=== PATIENT | male | born 1995 | race Caucasian/White ===

== ENCOUNTER 2019-09-07 08:12 | Inpatient (IN) | payer BC, OTHER ==
[~2019-09-07] VITALS: Ht 180.3 cm; Wt 89.9 kg
[2019-09-07] MEDS ORDERED: OMEP40CA97 PO (08:25)
[2019-09-07] MEDS ORDERED: NS 1,000 ML IV ONE (08:45)
[2019-09-07] MEDS ORDERED: PANTOPRAZOLE 40MG VIAL (C9113 PER 1) IV ONE (08:45)
[2019-09-07 09:44] LABS: BASO # 0.1 10^3/uL (0.0-0.2); BASO % 1.1 % (0.0-1.0); EOS # 0.7 10^3/uL (0.0-0.5); EOS % 14.6 % (0.0-3.0); HEMATOCRIT 41.7 % (42.0-52.0); HEMOGLOBIN 14.2 g/dl (13.5-17.5); LYMPH # 1.7 10^3/uL (1.5-5.0); LYMPH % 38.8 % (24.0-44.0); MEAN CORPUSCULAR HEMOGLOBIN 29.6 pg (27.0-33.0); MEAN CORPUSCULAR HGB CONC 34.1 g/dl (32.0-36.5); MEAN CORPUSCULAR VOLUME 86.9 fl (80.0-96.0); MONO # 0.5 10^3/uL (0.0-0.8); MONO % 12.1 % (0.0-5.0); NEUTROPHILS # 1.5 10^3/uL (1.5-8.5); NEUTROPHILS % 33.4 % (36.0-66.0); PLATELET COUNT, AUTOMATED 238 10^3/uL (150-450); WHITE BLOOD COUNT 4.5 10^3/uL (4.0-10.0)
--- NOTE | 2019-09-07 09:58 | REP ---
ABDOMINAL SERIES: Supine and erect views of the abdomen demonstrate no free air. There are scattered air throughout the GI tract. There is mild fecal material in the rectosigmoid colon. There are a few mildly dilated small bowel loops in the left mid abdomen. Two air fluid levels are seen on the upright view. No abnormal calcifications are seen. An accompanying view of the chest demonstrates no acute infiltrate. IMPRESSION: There are a few mildly dilated small bowel loops in the left mid abdomen with air fluid levels on the upright view. This could represent a mild focal ileus versus partial obstruction. Electronically Signed by Mitchell Duran MD 09/07/2019 07:35 P
[2019-09-07 10:03] LABS: INR 1.18; PROTHROMBIN TIME 14.7 SECONDS (11.8-14.0)
[2019-09-07 10:04] LABS: PARTIAL THROMBOPLASTIN TIME 26.5 SECONDS (25.0-38.4)
[2019-09-07 10:35] LABS: ALT/SGPT 48 U/L (12-78); AMYLASE 58 U/L (25-115); BILIRUBIN,DIRECT < 0.1 MG/DL (0.0-0.2); BILIRUBIN,TOTAL 0.4 MG/DL (0.2-1.0); BLOOD UREA NITROGEN 12 MG/DL (7-18); CARBON DIOXIDE LEVEL 28 MEQ/L (21-32); CHLORIDE LEVEL 108 MEQ/L (98-107); CK-MB VALUE MASS 3.4 NG/ML (<3.6); CPK CREATINE PHOSPHOKINASE 305 U/L (39-308); CREATININE FOR GFR 0.87 MG/DL (0.70-1.30); GLOMERULAR FILTRATION RATE > 60.0 (>60); GLUCOSE, FASTING 85 MG/DL (70-100); LIPASE 49 U/L (73-393); MB/CK RELATIVE INDEX 1.11 (< OR =4); SODIUM LEVEL 141 MEQ/L (136-145); TOTAL PROTEIN 7.5 GM/DL (6.4-8.2); TROPONIN I < 0.02 NG/ML (< 0.10)
[2019-09-07] MEDS ORDERED: ISOVUE-370 76% 100ML VIAL As Ordered ONE (12:37)
[2019-09-07] MEDS ORDERED: IBUP200C28 PO (13:34)
[2019-09-07 14:12] LABS: AMPHETAMINES LEVEL URINE NEGATIVE (NEGATIVE); BARBITURATES URINE NEGATIVE (NEGATIVE); BENZODIAZEPINES URINE NEGATIVE (NEGATIVE); CANNABINOIDS URINE POSITIVE (NEGATIVE); COCAINE METABOLITE URINE NEGATIVE (NEGATIVE); METHADONE URINE NEGATIVE (NEGATIVE); OPIATES URINE NEGATIVE (NEGATIVE); PHENCYCLIDINE URINE NEGATIVE (NEGATIVE)
--- NOTE | 2019-09-07 14:29 | REP ---
CT ABDOMEN AND PELVIS WITH IV CONTRAST: TECHNIQUE: Axial contrast-enhanced images from the lung bases to the pubic symphysis using 100 mL Isovue-370 intravenous contrast material with multiplanar reformations. Visualized lung bases are clear. The liver, spleen, adrenals, and pancreas appear normal. There is a 2 cm cyst anteriorly of the right kidney. There is no hydronephrosis bilaterally. There is no abdominal aortic aneurysm. There is no adenopathy. There is no free air or free fluid. There is no bowel wall thickening or evidence of obstruction. The appendix is normal. No pelvic mass is seen. Urinary bladder is not well distended and not well evaluated. IMPRESSION: No acute findings in the abdomen or pelvis. No free air or obstruction. Right renal cyst. Electronically Signed by Mitchell Duran MD 09/07/2019 07:51 P
--- NOTE | 2019-09-07 15:09 | ECGEPIP ---
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
--- NOTE | 2019-09-07 16:56 | HPEPDOC ---
General Date of Admission Sep 07, 2019 at 16:13 Date of Service: Sep 07, 2019 Chief Complaint The patient is a 23-year-old male admitted with a reason for visit of Gastrointestinal Bleeding Hematemesis. History of Present Illness 23 year old male presented to the ED for hematemesis this morning. He woke up this am feeling nauseaous then had an episode of hematemesis with bright red blood. This was associated with epigastric pain. This has happened several times before. He reports that frequently about 3 to 4 times a week he would be woken up from sleep feeling nauseous then would have an episode of vomiting after that he would feel better all day. He also reports frequent diarrhea about 3 to 4 days a week. At present says he is having diarrhea for the past 3 dadyas watery and bout 3 to 4 times a day without any blood in it. In between the bouts of diarrhea his stool is soft and mushy never well formed. ED provider spoke with Pt's Far[employer] Dealer in [place] Dr Singh and he recommended repeat EGD. His last one was more than a year ago. He is admitted for Upper GIB. Home Medications Scheduled Omeprazole (Omeprazole) 40 Mg Capsule.dr, 40 MG PO DAILY, (Reported) Scheduled PRN Ibuprofen (Ibuprofen) 200 Mg Capsule, 400 MG PO QID PRN for PAIN, (Reported) Allergies Coded Allergies: No Known Allergies (Unverified , 09/07/19) Past Medical History Medical History GERD Upper GIB --hematemesis in the past 7 to 8 times Binge alcohol use Annemarie Tovar tear Surgical History none Family History Mother: Johnson esophagus, Hypertension, Sjogrens syndrome Father: HTN, Acromegaly Maternal Grandfather: Ulcerative colitis has a ostomy Paternal grandfather : Colon cancer Social History * Smoker: Denies Alcohol: heavy (3 to 4 times a week about 4 to 5 shots. ) Drugs: marijuana A-FIB/CHADSVASC A-FIB History Current/History of A-Fib/PAF?: No Review of Systems Constitutional: Denies: Chills, Fever, Night Sweats Eyes: Denies: Pain, Vision change Skin: Denies: Rash, Lesions, Breakdown Pulmonary: Denies: Dyspnea, Cough Cardiovascular: Denies: Chest Pain, Palpitations, Orthopnea, Paroxysmal Noc. Dyspnea, Lt Headedness Gastrointestinal: Reports: Nausea, Vomiting, Abdominal Pain, Diarrhea Genitourinary: Denies: Dysuria, Frequency, Incontinence, Retention Hematologic: Denies: Bruising, Bleeding Excessively Musculoskeletal: Denies: Neck Pain, Back Pain, Joint Pain, Muscle Pain, Spasms Neurological: Denies: Weakness, Numbness, Change in speech, Confusion Physical Examination General Exam: Positive: Alert, Cooperative, No Acute Distress Eye Exam: Positive: PERRLA, Conjunctiva & lids normal, EOMI; Negative: Sclera icteric ENT Exam: Positive: Atraumatic, Mucous membr. moist/pink, Pharynx Normal Neck Exam: Positive: Supple; Negative: JVD, thyromegaly Chest Exam: Positive: Clear to auscultation, Normal air movement Heart Exam: Positive: Rate Normal, Regular Rhythm, Normal S1, Normal S2; Negative: Murmurs, Rubs Abdomen Exam: Positive: Normal bowel sounds, Soft, Tenderness (in clint epigastrium and right upper quadrant); Negative: Hepatospenomegaly Extremity Exam: Positive: Normal pulses; Negative: Clubbing, Cyanosis, Edema Skin Exam: Positive: Nl turgor and temperature; Negative: Breakdown, Lesion Neuro Exam: Positive: Normal Gait, Normal Speech, Cranial Nerves 3-12 NL, Reflexes 2+ Vital Signs Vital Signs Date Time Temp Pulse Resp B/P (MAP) Pulse Ox O2 Delivery O2 Flow Rate FiO2 09/07/19 15:05 98.0 69 18 134/80 (98) 99 Room Air Laboratory Data Labs 24H Laboratory Tests 2 09/07/19 09:28: Immature Granulocyte % (Auto) 0.0, Neutrophils (%) (Auto) 33.4L, Lymphocytes (%) (Auto) 38.8, Monocytes (%) (Auto) 12.1H, Eosinophils (%) (Auto) 14.6H, Basophils (%) (Auto) 1.1H, Neutrophils # (Auto) 1.5, Lymphocytes # (Auto) 1.7, Monocytes # (Auto) 0.5, Eosinophils # (Auto) 0.7H, Basophils # (Auto) 0.1, Nucleated Red Blood Cells % (auto) 0.0, Prothrombin Time 14.7H, Prothromb Time International Ratio 1.18, Activated Partial Thromboplast Time 26.5, Anion Gap 5L, Glomerular Filtration Rate > 60.0, Calcium Level 9.0, Total Bilirubin 0.4, Direct Bilirubin < 0.1, Aspartate Amino Transf (AST/SGOT) 48H, Alanine Aminotransferase (ALT/SGPT) 48, Alkaline Phosphatase 113, Total Creatine Kinase 305, Creatine Kinase MB 3.4, Creatine Kinase MB Relative Index 1.11, Troponin I < 0.02, Total Protein 7.5, Albumin 4.0, Albumin/Globulin Ratio 1.1, Amylase Level 58, Lipase 49L 09/07/19 13:39: Urine Opiates Screen NEGATIVE, Urine Methadone Screen NEGATIVE, Urine Barbiturates Screen NEGATIVE, Urine Phencyclidine Screen NEGATIVE, Urine [place] mines Screen NEGATIVE, Urine Benzodiazepines Screen NEGATIVE, Urine Cocaine Metabolite Screen NEGATIVE, Urine Cannabinoids Screen POSITIVEH CBC/BMP Laboratory Tests 09/07/19 09:28 09/07/19 12:05 Assessment/Plan 23 year old male presented to the ED for hematemesis this morning. He woke up this am feeling nauseaous then had an episode of hematemesis with bright red blood. This was associated with epigastric pain. This has happened several times before. He reports that frequently about 3 to 4 times a week he would be woken up from sleep feeling nauseous then would have an episode of vomiting after that he would feel better all day. He also reports frequent diarrhea about 3 to 4 days a week. At present says he is having diarrhea for the past 3 dadyas watery and bout 3 to 4 times a day without any blood in it. In between the bouts of diarrhea his stool is soft and mushy never well formed. ED provider spoke with 's [employer] Dealer in [place] Dr Singh and he recommended repeat EGD. His last one was more than a year ago. He is admitted for Upper GIB. Hemetemesis/ nausea GI consult Dr Chavez possible EGD tomorrow. Pantoprazole. Chronic recurrent Diarrhea will get GI panel Plan / VTE VTE Prophylaxis Ordered?: Yes JEANNA AGUIRRE MD Sep 07, 2019 16:56
[2019-09-07] MEDS: PANTOPRAZOLE 40MG VIAL (C9113 PER 1) IV SCH (20:14)
[2019-09-07 22:00] VITALS: BP 130/75
[2019-09-08 06:00] VITALS: BP 130/75
[2019-09-08 07:03] LABS: BASO % 0.9 % (0.0-1.0); EOS # 0.3 10^3/uL (0.0-0.5); EOS % 7.1 % (0.0-3.0); HEMATOCRIT 45.2 % (42.0-52.0); HEMOGLOBIN 15.4 g/dl (13.5-17.5); LYMPH # 1.7 10^3/uL (1.5-5.0); LYMPH % 36.3 % (24.0-44.0); MEAN CORPUSCULAR HEMOGLOBIN 30.1 pg (27.0-33.0); MEAN CORPUSCULAR HGB CONC 34.1 g/dl (32.0-36.5); MEAN CORPUSCULAR VOLUME 88.3 fl (80.0-96.0); MONO # 0.6 10^3/uL (0.0-0.8); MONO % 13.5 % (0.0-5.0); PLATELET COUNT, AUTOMATED 244 10^3/uL (150-450); RED BLOOD COUNT 5.12 10^6/uL (4.30-6.10); WHITE BLOOD COUNT 4.7 10^3/uL (4.0-10.0)
[2019-09-08 07:33] LABS: BLOOD UREA NITROGEN 12 MG/DL (7-18); CALCIUM LEVEL 9.6 MG/DL (8.5-10.1); CARBON DIOXIDE LEVEL 28 MEQ/L (21-32); CHLORIDE LEVEL 107 MEQ/L (98-107); CREATININE FOR GFR 0.98 MG/DL (0.70-1.30); GLOMERULAR FILTRATION RATE > 60.0 (>60); GLUCOSE, FASTING 89 MG/DL (70-100); POTASSIUM SERUM 4.2 MEQ/L (3.5-5.1); SODIUM LEVEL 140 MEQ/L (136-145)
[2019-09-08] MEDS: PANTOPRAZOLE 40MG VIAL (C9113 PER 1) IV SCH (08:10)
[2019-09-08 14:46] VITALS: BP 161/91
[2019-09-08] MEDS ORDERED: propofoL 200 MG/20 ML VIAL As Ordered ONE ×2 (16:18→16:23)
[2019-09-08] MEDS ORDERED: LIDOCAINE 2% 100MG/5ML SDV (FOR ANES.) As Ordered ONE (16:18)
[2019-09-08] MEDS ORDERED: fentaNYL 100 MCG/2 ML INJECTION (J3010) As Ordered ONE (16:18)
--- NOTE | 2019-09-08 16:47 | ROOR ---
Patient Name: Michel Dominguez Procedure Date: 09/08/2019 4:14 PM Date of : 1995 Age: 23 Room: [facility] Gender: Male Note Status: Finalized Procedure: Upper GI endoscopy Indications: Heartburn, Hematemesis Providers: Rambo CHAVEZ MD Referring MD: 2. Inpatient 2. Inpatient, Yarely Suresh Requesting Provider: Medicines: Monitored Anesthesia Care Complications: No immediate complications. Procedure: Pre-Anesthesia Assessment: - The heart rate, respiratory rate, oxygen saturations, blood pressure, adequacy of pulmonary ventilation, and response to care were monitored throughout the procedure. The Endoscope was introduced through the mouth, and advanced to the second part of duodenum. The upper GI endoscopy was accomplished without difficulty. The patient tolerated the procedure well. Findings: Non-severe esophagitis was found at the gastroesophageal junction. The Z-line was variable and was found 40 cm from the incisors. This was biopsied with a cold forceps for histology. Scattered mild inflammation characterized by erythema was found in the gastric antrum. Biopsies were taken with a cold forceps for histology. The exam of the stomach was otherwise normal. The examined duodenum was normal. Impression: - Mild esophagitis. Z-line variable, 40 cm from the incisors. Biopsied. - Mild gastritis. Biopsied. - Normal examined duodenum. -(-No convincing source for reported hematemesis found). Recommendation: - Cannot entirely r/o a tiny MW tear related to retching that already healed/closed. vs non GI causes--i.e. swallowed blood from a nose-bleed etc) - Use Prilosec (omeprazole) 40 mg PO daily indefinitely for heartburn. - Call my office for biopsy report in 2 weeks. - Return to GI clinic as previously scheduled. Follow up with Dr Horton/established GI. Rambo Chavez MD Rambo CHAVEZ MD 09/08/2019 4:46:48 PM Electronically signed by Rambo CHAVEZ MD Number of Addenda: 0 Note Initiated On: 09/08/2019 4:14 PM Estimated Blood Loss: Estimated blood loss: none.
--- NOTE | 2019-09-08 16:54 | DS.PDOC ---
Discharge Summary General Date of Admission Sep 07, 2019 at 16:13 Date of Discharge 09/08/2019 Discharge Summary PROCEDURES PERFORMED DURING STAY: EGD with Dr. Chavez on 09/08/2019 ADMITTING DIAGNOSES / DISCHARGE DIAGNOSES: Hematemesis Chronic diarrhea DVT prophylaxis COMPLICATIONS/CHIEF COMPLAINT: Vomiting blood HISTORY OF PRESENT ILLNESS / HOSPITAL COURSE: Patient is a 23-year-old male with a PMHx of Upper GI bleed (2/2 Annemarie Tovar tear) who presented to the hospital after experiencing a single episode of vomiting blood. Patient has also reported chronic diarrhea that occurs intermittently. Since that single episode of vomiting. Patient has not experienced any further vomiting episodes. He was admitted to the hospitalist service for further evaluation and treatment. Gastroenterology was called on consultation for EGD. Patient was admitted to the medical floor and continue with Protonix IV twice a day. , His hemoglobin had remained stable. He has remained hemodynamically sta ble. Has not expense any further episodes of nausea or vomiting. Denies any dark colored stools. Reports his last bowel movement was prior to admission. He remained nothing by mouth post-midnight and received his endoscopy on 09/07. EGD revealed mild esophagitis, mild gastritis, normal duodenum, no convincing source for reported hematemesis. Recommended to continue omeprazole 40 by mouth daily indefinitely. Patient has been cleared for discharge home by GI. Will have outpatient follow- up with primary care provider and Dr. Horton, established chief development officer in [place]. . She has been advised to call Dr. Chavez for biopsy results within 2 weeks. DISCHARGE MEDICATIONS: Please see below. ALLERGIES: Please see below. PHYSICAL EXAMINATION ON DISCHARGE: Vitals (See below) General: Lying in bed, appears comfortable, AAOx3 HEENT: NC, AT CVS: RRR, +S1S2 Lungs: Fair air entry b/l, -w/r/r Abdomen: Soft, ND, NT Extremities: - Edema, - Calf tenderness LABORATORY DATA: Please see below. ACTIVITY: [As tolerated]. DISCHARGE PLAN: Follow up with PCP, Gastroenterology cher 7 days Remain compliant with treatment plan and medications Return to the ER if you experience any problems DISPOSITION: Home DISCHARGE CONDITION: [Stable]. TIME SPENT ON DISCHARGE: 35 minutes. Vital Signs/I&Os Vital Signs Date Time Temp Pulse Resp B/P (MAP) Pulse Ox O2 Delivery O2 Flow Rate FiO2 09/08/19 14:46 98.1 106 17 161/91 (114) 100 Room Air I&O- Last 24 Hours up to 6 AM 09/08/19 06:00 Intake Total 1900 ml Output Total 250 ml Balance 1650 ml Laboratory Data Labs 24H Laboratory Tests 2 09/08/19 06:20: Immature Granulocyte % (Auto) 0.2, Neutrophils (%) (Auto) 42.0, Lymphocytes (%) (Auto) 36.3, Monocytes (%) (Auto) 13.5H, Eosinophils (%) (Auto) 7.1H, Basophils (%) (Auto) 0.9, Neutrophils # (Auto) 2.0, Lymphocytes # (Auto) 1.7, Monocytes # (Auto) 0.6, Eosinophils # (Auto) 0.3, Basophils # (Auto) 0.0, Nucleated Red Blood Cells % (auto) 0.0, Anion Gap 5L, Glomerular Filtration Rate > 60.0, Calcium Level 9.6 CBC/BMP Laboratory Tests 09/08/19 06:20 Discharge Medications Scheduled Omeprazole (Omeprazole) 40 Mg Capsule.dr, 40 MG PO DAILY, (Reported) Scheduled PRN Ibuprofen (Ibuprofen) 200 Mg Capsule, 400 MG PO QID PRN for PAIN, (Reported) Allergies Coded Allergies: No Known Allergies (Unverified , 09/07/19) YANIV MORALES MD Sep 08, 2019 16:49
[2019-09-08 16:55] VITALS: BP 137/70
== END 2019-09-08 18:20 | disposition home or self-care (01) | DRG 253 ==
LOC: M ED 08:12 → M ED INP 16:13 → M MS5PR 17:00
PROVIDERS: ADMIT Internal Medicine Nephrology; ATTEND Internal Medicine
PROC: 0DB68ZX Excision of Stomach, Via Natural or Artificial Opening Endoscopic, Diagnostic (ICD-10-PCS; principal; 2019-09-08 15:00)
DX: K92.0 Hematemesis (principal); K20.9 Esophagitis, unspecified; K29.70 Gastritis, unspecified, without bleeding; K21.9 Gastro-esophageal reflux disease without esophagitis; F10.10 Alcohol abuse, uncomplicated; Z79.899 Other long term (current) drug therapy